=== PATIENT | male | born 1955 | race Hispanic/Latino ===

== ENCOUNTER 2022-07-16 13:21 | Emergency (ER) | payer OTHER ==
[~2022-07-16] VITALS: Ht 172.7 cm; Wt 108.9 kg
[2022-07-16] MEDS ORDERED: ASPIRIN 81MG CHEW TAB PO ONE (13:30)
[2022-07-16 13:53] LABS: BASOPHILS % (AUTO) 0.4 % (0.0-5.0); EOSINOPHILS % (AUTO) 1.6 % (0.0-8.0); HEMATOCRIT 34.4 % (42-54); LYMPHOCYTES % (AUTO) 29.1 % (21.0-51.0); MEAN CORPUSCULAR HEMOGLOBIN 23.8 pg (27.0-33.0); MEAN CORPUSCULAR HGB CONC 31.1 g/dL (32.0-36.0); MEAN CORPUSCULAR VOLUME 76.4 fL (79-99); MONOCYTES % (AUTO) 8.5 % (3.0-13.0); PLATELET COUNT (AUTO) 150 K/uL (130-400); RED CELL DISTRIBUTION WIDTH 15.8 % (11.0-15.5); WHITE BLOOD COUNT (AUTO) 6.8 K/uL (4.8-10.8)
[2022-07-16 14:04] LABS: POTASSIUM 4.4 mmol/L (3.5-5.1)
[2022-07-16 14:09] LABS: ALBUMIN 3.5 g/dL (3.5-5.0); TOTAL PROTEIN, SERUM 6.9 g/dL (6.0-8.3)
[2022-07-16 14:42] LABS: B-TYPE NATRIURETIC PEPTIDE 123 pg/mL (0-100)
[2022-07-16 16:07] VITALS: BP 128/63
== END 2022-07-16 16:16 | disposition home or self-care (01) ==
LOC: EDH 13:21
DX: I20.8 Other forms of angina pectoris (principal); F17.200 Nicotine dependence, unspecified, uncomplicated
CPT/HCPCS: 36415; 71045; 80053; 83880; 84484; 85025; 85378; 93005

== ENCOUNTER 2022-08-02 23:21 | Inpatient (IN) | payer OTHER ==
[~2022-08-02] VITALS: Ht 175.3 cm; Wt 108.4 kg
[2022-08-02 23:45] LABS: BASOPHILS % (AUTO) 0.4 % (0.0-5.0); EOSINOPHILS % (AUTO) 1.4 % (0.0-8.0); HEMATOCRIT 36.9 % (42-54); LYMPHOCYTES % (AUTO) 26.5 % (21.0-51.0); MEAN CORPUSCULAR HEMOGLOBIN 23.3 pg (27.0-33.0); MEAN CORPUSCULAR HGB CONC 30.6 g/dL (32.0-36.0); MEAN CORPUSCULAR VOLUME 75.9 fL (79-99); MONOCYTES % (AUTO) 8.6 % (3.0-13.0); NEUTROPHILS % (AUTO) 62.8 % (40.0-77.0); PLATELET COUNT (AUTO) 172 K/uL (130-400); RED BLOOD CELL COUNT(AUTO) 4.86 MIL/uL (4.50-6.20); RED CELL DISTRIBUTION WIDTH 16.4 % (11.0-15.5); WHITE BLOOD COUNT (AUTO) 7.3 K/uL (4.8-10.8)
[2022-08-02 23:58] LABS: POTASSIUM 4.3 mmol/L (3.5-5.1)
[2022-08-03] MEDS ORDERED: ALBUTEROL 0.083% 2.5 MG/3 ML INH IH ONE
[2022-08-03] MEDS ORDERED: SOLU-MEDROL 125MG VIAL IVP ONE
[2022-08-03] MEDS ORDERED: IPRATROPIUM 0.5 MG/2.5 ML INH IH ONE
[2022-08-03 00:03] LABS: ALBUMIN 3.9 g/dL (3.5-5.0); TOTAL PROTEIN, SERUM 7.8 g/dL (6.0-8.3)
[2022-08-03 00:30] LABS: B-TYPE NATRIURETIC PEPTIDE 303 pg/mL (0-100)
[2022-08-03] MEDS ORDERED: LACTULOSE 20 GM/30 ML UDCUP PO PRN (02:30)
[2022-08-03] MEDS ORDERED: ONDANSETRON 4MG INJ IV PRN (02:30)
[2022-08-03] MEDS ORDERED: ACETAMINOPHEN 325 MG TAB PO PRN ×2 (02:30)
[2022-08-03] MEDS ORDERED: IPRATROPIUM/ALBUTEROL SULFATE 3 ML SOLUTION IH SCH ×2 (06:00)
[2022-08-03] MEDS: IPRATROPIUM 0.5 MG/2.5 ML INH IH SCH ×4 (07:16→23:37)
[2022-08-03] MEDS: ALBUTEROL 0.083% 2.5 MG/3 ML INH IH SCH ×4 (07:16→23:37)
[2022-08-03] MEDS: ENOXAPARIN SODIUM 40 MG/0.4 ML SYRINGE SQ SCH (09:00)
[2022-08-03] MEDS: FAMOTIDINE 20MG TAB PO SCH ×2 (09:00→21:26)
[2022-08-03] MEDS: SOLU-MEDROL 125MG VIAL IV SCH ×2 (09:00→21:27)
[2022-08-03] MEDS: INSULIN HUMULIN R 100 UNIT/ML 3ML SQ SCH ×4 (09:01→21:26)
[2022-08-03 22:45] VITALS: BP 118/73
[2022-08-03] MEDS ORDERED: TEMAZEPAM 7.5 MG CAPSULE PO ONE (23:30)
[2022-08-04 04:28] VITALS: BP 126/76
[2022-08-04] MEDS: IPRATROPIUM 0.5 MG/2.5 ML INH IH SCH ×2 (06:32→11:06)
[2022-08-04] MEDS: ALBUTEROL 0.083% 2.5 MG/3 ML INH IH SCH ×4 (06:32→23:27)
[2022-08-04] MEDS: INSULIN HUMULIN R 100 UNIT/ML 3ML SQ SCH ×5 (07:23→19:47)
[2022-08-04 08:00] VITALS: BP 125/79
[2022-08-04] MEDS: ENOXAPARIN SODIUM 40 MG/0.4 ML SYRINGE SQ SCH (08:10)
[2022-08-04] MEDS: FAMOTIDINE 20MG TAB PO SCH ×2 (08:11→19:46)
[2022-08-04] MEDS: SOLU-MEDROL 125MG VIAL IV SCH (08:11)
[2022-08-04 12:00] VITALS: BP 140/71
[2022-08-04] MEDS ORDERED: METFORMIN HCL 500 MG TABLET PO ONE (15:30)
[2022-08-04] MEDS ORDERED: NEBU-227 MC (15:51)
[2022-08-04] MEDS ORDERED: PRED20TA3 PO (15:51)
[2022-08-04] MEDS ORDERED: AUD IH (15:51)
[2022-08-04] MEDS ORDERED: DOXY100C5 PO (15:51)
[2022-08-04] MEDS ORDERED: FLUT1BLS IH (15:51)
[2022-08-04 15:55] VITALS: BP 146/84
[2022-08-04] MEDS ORDERED: LINAGLIPTIN 5 MG TABLET PO ONE (16:00)
[2022-08-04] MEDS ORDERED: GLIPIZIDE 5 MG TABLET PO ONE (16:00)
[2022-08-04] MEDS ORDERED: PRAV20TA4 PO (16:12)
[2022-08-04] MEDS ORDERED: ENAL2.5T16 PO (16:13)
[2022-08-04] MEDS ORDERED: DUTA0.5C37 PO (16:13)
[2022-08-04] MEDS ORDERED: ASPI-1197 PO (16:13)
[2022-08-04] MEDS ORDERED: SITA1TAB6 PO (16:13)
[2022-08-04] MEDS ORDERED: TAMS-1 PO (16:13)
[2022-08-04] MEDS ORDERED: GLYB2.5T5 PO (16:13)
[2022-08-04] MEDS ORDERED: MULT-1296 PO (16:13)
[2022-08-04] MEDS ORDERED: CETI10TA87 PO (16:13)
[2022-08-04] MEDS: FUROSEMIDE 20MG VIAL IV SCH (17:21)
[2022-08-04] MEDS: DOXYCYCLINE 100MG+NS 250ML IV SCH (17:21)
[2022-08-04] MEDS: SOLU-MEDROL 40MG VIAL IVP SCH (17:22)
[2022-08-04] MEDS ORDERED: BUPROPION HCL 150 MG TABLET.SA PO SCH (18:00)
[2022-08-04] MEDS ORDERED: NICOTINE 21 MG/ 24 HR PATCH TD SCH (18:00)
[2022-08-04] MEDS: SODIUM CHLORIDE 3% FOR INHALATION 4 ML/AMP VIAL.NEB IH SCH ×2 (18:29→23:27)
[2022-08-04 19:00] VITALS: BP 128/68
[2022-08-04] MEDS ORDERED: TRAZODONE HCL 50 MG TAB PO SCH (21:00)
[2022-08-04] MEDS ORDERED: INSULIN GLARGINE 100 UNITS/ML 10 ML VIAL SQ SCH (21:00)
[2022-08-04 23:52] VITALS: BP 125/65
[2022-08-05] MEDS: SOLU-MEDROL 40MG VIAL IVP SCH ×2 (01:24→09:04)
[2022-08-05] MEDS: FUROSEMIDE 20MG VIAL IV SCH ×3 (01:27→17:00)
[2022-08-05 04:00] VITALS: BP 136/68
[2022-08-05] MEDS: DOXYCYCLINE 100MG+NS 250ML IV SCH ×2 (04:27→15:57)
[2022-08-05 05:14] LABS: HEMATOCRIT 32.9 % (42-54); LYMPHOCYTES % (AUTO) 7.8 % (21.0-51.0); MEAN CORPUSCULAR HGB CONC 30.7 g/dL (32.0-36.0); MEAN CORPUSCULAR VOLUME 74.9 fL (79-99); MONOCYTES % (AUTO) 2.8 % (3.0-13.0); NEUTROPHILS % (AUTO) 87.6 % (40.0-77.0); PLATELET COUNT (AUTO) 169 K/uL (130-400); RED BLOOD CELL COUNT(AUTO) 4.39 MIL/uL (4.50-6.20); RED CELL DISTRIBUTION WIDTH 16.3 % (11.0-15.5); WHITE BLOOD COUNT (AUTO) 12.8 K/uL (4.8-10.8)
[2022-08-05 05:42] LABS: CREATININE 1.1 mg/dL (0.5-1.5); MAGNESIUM 2.1 mg/dL (1.80-2.40); POTASSIUM 4.2 mmol/L (3.5-5.1)
[2022-08-05 05:58] LABS: B-TYPE NATRIURETIC PEPTIDE 550 pg/mL (0-100)
[2022-08-05] MEDS: ALBUTEROL 0.083% 2.5 MG/3 ML INH IH SCH ×2 (06:37→13:37)
[2022-08-05] MEDS: SODIUM CHLORIDE 3% FOR INHALATION 4 ML/AMP VIAL.NEB IH SCH ×2 (06:37→13:37)
[2022-08-05] MEDS: INSULIN HUMULIN R 100 UNIT/ML 3ML SQ SCH ×5 (06:50→16:18)
[2022-08-05 08:00] VITALS: BP 132/46
[2022-08-05] MEDS ORDERED: NICOTINE 21 MG/ 24 HR PATCH TD SCH (09:00)
[2022-08-05] MEDS ORDERED: BUPROPION HCL 150 MG TABLET.SA PO SCH (09:00)
[2022-08-05] MEDS ORDERED: PREDNISONE 20 MG TABLET PO SCH (09:00)
[2022-08-05] MEDS: FAMOTIDINE 20MG TAB PO SCH (09:03)
[2022-08-05] MEDS: ENOXAPARIN SODIUM 40 MG/0.4 ML SYRINGE SQ SCH (09:04)
[2022-08-05 12:00] VITALS: BP 124/57
[2022-08-05 15:17] LABS: % IRON SATURATION 2.9 % (30-44)
[2022-08-05 16:00] VITALS: BP 117/56
[2022-08-05] MEDS ORDERED: SOLU-MEDROL 40MG VIAL IVP SCH (17:00)
[2022-08-05] MEDS ORDERED: INSULIN HUMULIN R 100 UNIT/ML 3ML SQ SCH (17:00)
[2022-08-05] MEDS ORDERED: BUPR-113 PO (17:15)
== END 2022-08-05 18:35 | disposition home or self-care (01) | DRG 291 ==
LOC: EDH 23:21 → EDHIP 08-03 02:05 → 4AH 08-03 23:04
PROVIDERS: ADMIT Hospitalist; ATTEND Hospitalist
DX: I11.0 Hypertensive heart disease with heart failure (principal); I50.31 Acute diastolic (congestive) heart failure; J44.1 Chronic obstructive pulmonary disease with (acute) exacerbation; E87.1 Hypo-osmolality and hyponatremia; R79.89 Other specified abnormal findings of blood chemistry; E11.9 Type 2 diabetes mellitus without complications; F17.210 Nicotine dependence, cigarettes, uncomplicated; Z90.49 Acquired absence of other specified parts of digestive tract
CPT/HCPCS: 36415; 71045; 80048; 80053; 82607; 82728; 82746; 82948; 83540; 83550; 83735; 83880; 84100; 84484; 85025; 85378; 87635; 87804; 93005; 93306; 94640; 94664; C9803; G0378; J1650; J1815; J1940; J2920; J2930; J3490

== ENCOUNTER → 2022-09-29 | Outpatient (CLI) | payer OTHER ==
[~2022-09-29] MED LIST: ASPI-1197 PO; AUD IH; BUPR-113 PO; CETI10TA87 PO; DOXY100C5 PO; DUTA0.5C37 PO; ENAL2.5T16 PO; FLUT1BLS IH; GLYB2.5T5 PO; MULT-1296 PO; NEBU-227 MC; PRAV20TA4 PO; PRED20TA3 PO; REGADENOSON 0.4 MG/5 ML PF SYG IVP ONE; SITA1TAB6 PO; TAMS-1 PO
== END | disposition home or self-care (01) ==
LOC: SHCH 07:49
PROVIDERS: ATTEND Student in an Organized Health Care Education/Training Program
DX: R94.39 Abnormal result of other cardiovascular function study (principal); R06.00 Dyspnea, unspecified; Z79.899 Other long term (current) drug therapy
CPT/HCPCS: 78452; 96374; 93017; J2785; A9500 ×2

== ENCOUNTER 2022-11-09 06:16 | Day surgery (SDC) | payer OTHER ==
[2022-11-05 08:05] LABS: APPEARANCE,URINE CLEAR (CLEAR); BILIRUBIN,URINE NEGATIVE (NEGATIVE); COLOR,URINE LIGHT-YELLOW (YELLOW); GLUCOSE, URINE (UA) 30 mg/dL (NEGATIVE); KETONES,URINE NEGATIVE (NEGATIVE); LEUKOCYTE ESTERASE ,URINE NEGATIVE Leu/uL (NEGATIVE); NITRATE,URINE NEGATIVE (NEGATIVE); OCCULT BLOOD,URINE NEGATIVE (NEGATIVE); PROTEIN,URINE NEGATIVE (NEGATIVE); UROBILINOGEN,URINE 0.2 mg/dL (0.2-1.0)
[2022-11-05 08:14] LABS: CREATININE 1.2 mg/dL (0.5-1.5); POTASSIUM 5.3 mmol/L (3.5-5.1)
[2022-11-05 08:16] LABS: INR 1.01 (0.85-1.15)
[2022-11-05 08:17] LABS: PARTIAL THROMBOPLASTIN TIME 28.2 SEC (26.3-35.5)
[2022-11-05 08:18] LABS: RBC,URINE 0-1 /HPF (0-1); SQUAMOUS EPITHELIAL CELL,UR RARE /HPF (0-2); WBC,URINE 0-1 /HPF (0-1)
[2022-11-05 08:22] LABS: BASOPHILS % (AUTO) 0.7 % (0.0-5.0); HEMATOCRIT 37.5 % (42-54); LYMPHOCYTES % (AUTO) 30.6 % (21.0-51.0); MEAN CORPUSCULAR HGB CONC 29.9 g/dL (32.0-36.0); MEAN CORPUSCULAR VOLUME 73.7 fL (79-99); MONOCYTES % (AUTO) 10.8 % (3.0-13.0); NEUTROPHILS % (AUTO) 53.2 % (40.0-77.0); PLATELET COUNT (AUTO) 157 K/uL (130-400); RED BLOOD CELL COUNT(AUTO) 5.09 MIL/uL (4.50-6.20); RED CELL DISTRIBUTION WIDTH 18.3 % (11.0-15.5)
[2022-11-05 08:30] LABS: B-TYPE NATRIURETIC PEPTIDE 240 pg/mL (0-100)
[2022-11-05 08:51] VITALS: BP 131/54
[~2022-11-09] VITALS: Ht 176.5 cm; Wt 110.7 kg
[2022-11-09] VITALS (10 sets, daily range): BP systolic 112–142; BP diastolic 58–69
[~2022-11-09 06:16] MED LIST changes: +0.9% NACL 500ML IV.SOLN 500 ML IV SCH; -AUD IH; -DOXY100C5 PO; -FLUT1BLS IH; +METO25TA3 PO; -NEBU-227 MC; -PRED20TA3 PO; -REGADENOSON 0.4 MG/5 ML PF SYG IVP ONE
[2022-11-09] MEDS ORDERED: 0.9%NACL 1000ML 1,000 ML IV ONE (06:58)
[2022-11-09] MEDS ORDERED: LIDOCAINE HCL 400MG/20ML VIAL ONE (08:20)
[2022-11-09] MEDS ORDERED: FENTANYL CITRATE PF 50 MCG/1 ML 2ML VIAL ONE (08:20)
[2022-11-09] MEDS ORDERED: MIDAZOLAM HCL 1 MG/ML 2ML VIAL ONE ×2 (08:21→08:57)
[2022-11-09] MEDS ORDERED: HEPARIN 10,000 UNIT/10ML (1,000 UNIT/ML) VIAL ONE (08:21)
[2022-11-09] MEDS ORDERED: VERAPAMIL HCL 2.5 MG/ML VIAL ONE (08:21)
[2022-11-09] MEDS ORDERED: NITROGLYCERIN 50MG VIAL ONE (08:21)
[2022-11-09] MEDS ORDERED: IOHEXOL 350 MG/ML 100ML INFUS..BTL IV ONE ×2 (08:28→08:58)
[2022-11-09] MEDS ORDERED: GLUCAGON 1MG KIT 1 MG ML IM PRN (10:00)
[2022-11-09] MEDS ORDERED: DEXTROSE 50%-WATER 50 ML DISP.SYRIN IV PRN (10:00)
[2022-11-09] MEDS ORDERED: 0.9%NACL 1000ML 1,000 ML IV SCH (10:00)
== END 2022-11-09 13:55 | disposition home or self-care (01) ==
LOC: DAH 06:16
PROVIDERS: ATTEND Student in an Organized Health Care Education/Training Program
DX: I25.119 Atherosclerotic heart disease of native coronary artery with unspecified angina pectoris (principal); I08.0 Rheumatic disorders of both mitral and aortic valves; R94.31 Abnormal electrocardiogram [ECG] [EKG]; I10 Essential (primary) hypertension; E11.9 Type 2 diabetes mellitus without complications; J44.1 Chronic obstructive pulmonary disease with (acute) exacerbation; Z87.891 Personal history of nicotine dependence; Z82.49 Family history of ischemic heart disease and other diseases of the circulatory system; Z83.3 Family history of diabetes mellitus; Z79.899 Other long term (current) drug therapy; Z79.01 Long term (current) use of anticoagulants
CPT/HCPCS: 80048; 83880; 85025; 85610; 85730; 81001; 36415; 71045; 93306; 93005; 93454; 82948 ×2; C1769 ×3; C1894 ×4; C1760; J3010; J3490 ×3; J7030; J1644 ×2; J2250 ×2; Q9967; A4215; A4222; A4221; A4663; A4216; A4606; Q9965; A4223 ×3; 96360; 96361; 99156; 99157

== ENCOUNTER → 2023-10-06 | Outpatient (CLI) | payer OTHER ==
[~2023-10-06] MED LIST changes: -0.9% NACL 500ML IV.SOLN 500 ML IV SCH; -ENAL2.5T16 PO; +ENAL2.5T71 PO; -GLYB2.5T5 PO; -MULT-1296 PO; +RISA150S2 SQ; +TERB250T89 PO
== END | disposition home or self-care (01) ==
LOC: RAH 11:56
PROVIDERS: ATTEND Student in an Organized Health Care Education/Training Program
DX: I70.203 Unspecified atherosclerosis of native arteries of extremities, bilateral legs (principal); I25.10 Atherosclerotic heart disease of native coronary artery without angina pectoris
CPT/HCPCS: 93925

== ENCOUNTER → 2023-11-26 | Outpatient (CLI) | payer OTHER ==
[2023-11-26 15:33] LABS: BASOPHILS # (AUTO) 0.03 K/uL (0.00-0.20); BASOPHILS % (AUTO) 0.4 % (0.0-5.0); EOSINOPHILS # (AUTO) 0.13 K/uL (0.00-0.70); EOSINOPHILS % (AUTO) 1.9 % (0.0-8.0); HEMATOCRIT 28.1 % (42-54); IMMATURE GRANULOCYTE ABSOLUTE 0.02 K/uL (0-1); LYMPHOCYTES # (AUTO) 1.6 K/uL (1.0-4.8); LYMPHOCYTES % (AUTO) 22.8 % (21.0-51.0); MEAN CORPUSCULAR HEMOGLOBIN 16.4 pg (27.0-33.0); MEAN CORPUSCULAR HGB CONC 26.3 g/dL (32.0-36.0); MEAN CORPUSCULAR VOLUME 62.3 fL (79-99); MONOCYTES # (AUTO) 0.6 K/uL (0.1-1.0); MONOCYTES % (AUTO) 9.1 % (3.0-13.0); NEUTROPHILS # (AUTO) 4.5 K/uL (1.8-7.7); NEUTROPHILS % (AUTO) 65.5 % (40.0-77.0); PLATELET COUNT (AUTO) 198 K/uL (130-400); RED BLOOD CELL COUNT(AUTO) 4.51 MIL/uL (4.50-6.20); RED CELL DISTRIBUTION WIDTH 20.7 % (11.0-15.5); WHITE BLOOD COUNT (AUTO) 6.8 K/uL (4.8-10.8)
[2023-11-26 15:47] LABS: INR 0.96 (0.85-1.15); PROTHROMBIN TIME 11.4 SEC (9.6-11.6)
[2023-11-26 15:49] LABS: PARTIAL THROMBOPLASTIN TIME 26.3 SEC (26.3-35.5)
[2023-11-26 15:58] LABS: CREATININE 1.2 mg/dL (0.5-1.3); POTASSIUM 4.7 mmol/L (3.5-5.1)
== END | disposition home or self-care (01) ==
LOC: LAB 12:01
PROVIDERS: ATTEND Student in an Organized Health Care Education/Training Program
DX: I10 Essential (primary) hypertension (principal); R06.09 Other forms of dyspnea; R06.02 Shortness of breath
CPT/HCPCS: 36415; 80048; 85025; 85610; 85730